=== PATIENT | male | born 1980 | race African-American/Black ===

== ENCOUNTER 2016-12-08 07:08 | Emergency (ER) | payer MEDICAID ==
[~2016-12-08] VITALS: Ht 177.8 cm; Wt 86.1 kg
[~2016-12-08 07:08] MED LIST: ACET-2723 PO; FAMO-137 PO; FAMO20TA8 PO
[2016-12-08 07:12] VITALS: Ht 177.8 cm; Wt 86.1 kg
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
[2016-12-08] MEDS ORDERED: NORMAL SALINE 1,000 ML IV ONE (07:18)
[2016-12-08] MEDS ORDERED: RISP2TAB (07:21)
--- OUTSIDE RECORDS SUMMARY | 2016-12-08 07:27 | XMS REPORT | Continuity of Care Document ---
Author Author [facility] Organization [facility] Address Unknown Phone Unavailable Support Name Relationship Address Phone LEANDROHOOD BOBBY Caregiver [address] [address] MERNA MURRY MD Caregiver [address] [address] Unavailable ANG GRAHAM Next Of Kin [address] [place] [address] CP Insurance Providers Payer Name Policy Number Subscriber Name Relationship Medicaid Out Of State [id number] Miladys Pascual 16 Self Problems Medical Problems [...] F (96.8 - 99.1) Temperature (Calculated Celsius) 36.47193 degrees C (36.0 - 37.3) Pulse Rate [...] specimen been collected/ obtained? Y Urine Specific [place] October 26, 2014 6:20pm 1.020 - Has [...] N 4.5-11.0 Name: MILADYS PASCUAL Unit #: [id number] : 1980 Sex: M Loc / Svc: ED DOS: Signed Report #: [id number] DIAGNOSTIC IMAGING REPORT TYPE OF EXAM: KUB [...] Encounters Encounter Location Date/Time Departed Emergency Room [facility] 10/26/14 4:33pm Recent Diagnosis
[2016-12-08] MEDS ORDERED: ONDANSETRON 4mg/2ml INJECTION IV ONE (07:30)
[2016-12-08] MEDS ORDERED: FAMOTIDINE 20 MG in FAMOTIDINE 20mg IVPB 50 ML IV ONE (07:30)
[2016-12-08] MEDS ORDERED: G.I. COCKTAIL 30ml PO ONE (07:30)
[2016-12-08 07:39] LABS: BASOPHILS % (AUTO) 0.1 % (0-2); HCT - HEMATOCRIT 53.2 % (41-53); HGB - HEMOGLOBIN 18.1 GM/DL (13.5-17.5); IMMATURE GRANULOCYTE # (AUTO) 0.03 T/MM3 (0.00-0.03); IMMATURE GRANULOCYTE % (AUTO) 0.3 % (0.0-0.5); LYMPHOCYTES # (AUTO) 2.2 T/MM3 (1-4.8); LYMPHOCYTES % (AUTO) 18.2 % (23-45); MEAN CORPUSCULAR HGB 29.9 UUG (26-34); MEAN CORPUSCULAR VOLUME 87.9 UM3 (80-100); MEAN PLATELET VOLUME 10.5 UM3 (9.4-12.4); MONOCYTES # (AUTO) 0.6 T/MM3 (0-0.8); MONOCYTES % (AUTO) 5.1 % (0-9.0); NEUTROPHILS #(AUTO)-ABSOLUTE 9.1 T/MM3 (1.8-7.7); NEUTROPHILS % (AUTO) 76.3 % (33-66); RED BLOOD COUNT 6.05 M/MM3 (4.50-5.90); WBC - WHITE BLOOD COUNT 11.9 T/MM3 (4.5-11.0)
--- NOTE | 2016-12-08 07:40 | NUR ---
TO XRY PER CART
[2016-12-08 07:45] LABS: ANION GAP 18 MEQ/L (5-15); BUN/CREATININE RATIO 17 RATIO (6-26); CALCIUM 10.5 MG/DL (8.4-10.2); CHLORIDE 92 MEQ/L (98-107); CO2 - CARBON DIOXIDE 34 MEQ/L (22-30); GLOMERULAR FILTRATION RATE 84; GLUCOSE 125 MG/DL (75-110); LIPASE 33 U/L (23-300); POTASSIUM 3.2 MEQ/L (3.6-5); SODIUM 144 MEQ/L (134-144)
--- NOTE | 2016-12-08 07:47 | ERPDOC ---
Departure Disposition Decision Date: December 08, 2016 Disposition Decision Time: 08:50 Disposition: 01 DISCHARGED HOME, SELF-CARE Impression Impression Impression: Primary Impression: Nausea & vomiting Vomiting type: unspecified Vomiting Intractability: non-intractable Qualified Codes: R11.2 - Nausea with vomiting, unspecified Additional Impression: Abdominal pain Abdominal location: epigastric Qualified Codes: R10.13 - Epigastric pain Severity: Severe Condition: Improved Seen By: Physician only Referrals: ERIK ROACH MD (PCP) 3 Days Patient Instructions: Abdominal Pain (ED), Gastroenteritis (ED) Problems/Meds/Labs Reviewed?: Yes Medications reviewed and manag: Yes Additional Instructions: You have stomach pain, which might be due to your acid reflux, or might be due to a stomach bug (gastroenteritis). Take the famotidine to help with stomach acid. The sucralfate will help to coat your stomach and take away the pain. Use the zofran for nausea. Eat whatever you can tolerate - starting with clear liquids and advancing your diet to the next complex food. Follow up care ordered?: Yes Mental Status: Alert, Oriented Scripts Ondansetron (Zofran Odt) 4 Mg Tab.rapdis 4 MG PO QID Y for NAUSEA &/OR VOMITING, #20 TAB 0 Refills Prov: DECEMBERHO DO 12/08/16 Sucralfate (Sucralfate) 1 Gm Tablet 1 TAB PO QID, #120 TAB 3 Refills Prov: DECEMBERHO DO 12/08/16 Famotidine (Famotidine) 20 Mg Tablet 1 TAB PO BID for 30 Days, #60 TAB Prov: DECEMBERHO DO 12/08/16 HPI - Abdominal Pain General Chief Complaint: Abdominal Pain Stated Complaint: VOMITING AND ABDOMINAL PAIN Time Seen by Provider: 07:18 Source: patient, EMS History/Exam Limitations: no limitations HPI - Abdominal Pain Initial Comments 36yo man presented to the ER by EMS for Abd pain/vomiting. Pt has a h/o GERD, usually kept in check by PO pepcid; pt has not need pepcid in appx 1 year. Three days ago, pt had nausea, vomiting, and intermittent abdominal pain, which became much worse after vomiting. Pt has not taken any medications to help his sx; he is having trouble keeping anything down. Today, sx have still not resolved; EMS found pts latest bilious vomit still in his toilet. Denies any URI /sinusitis sx. Pt is well-known to the local EMS. Has a h/o schizophrenia, relatively well- controlled. Has comorbid GERD and possible gastric ulcers. Occurred At: home Onset: Rapid, Constant Duration: other Pain Scale: Now & Worst: 6/10 Quality: sharpness, stabbing Location: epigastric Radiation: no radiation Activities at Onset: none Modifying Factors: IMPROVES WITH: lying down, rest, WORSE WITH: eating, movement, palpation, vomiting Associated Symptoms: nausea/vomiting Hx of Similar Symptoms: Yes Allergies: Coded Allergies: No Known Drug Allergies (Unverified Allergy, Unknown, 08/26/15) Past History Past Medical History Hx Echocardiogram: No GI: GERD, ulcers Psychological: schizophrenia Surgical History Denies Surgeries Vaccines Hx Influenza Vaccination: No Hx Pneumococcal Vaccination: No Social History Sexuality: female partner Review of Systems GI Upper Abdomen: heartburn/indigestion, nausea, pain, vomiting, DENIES: dysphagia , food intolerances, hematemesis Lower Abdomen: constipation, DENIES: blood in stool, eugene-colored stools, diarrhea, melena, pain, painful BM All other Systems All Other Systems: Reviewed and Negative Physical Exam General General Nourishment: well nourished, well developed, appears stated age, no acute distress, adult General Body Habitus: well groomed Vitals and Pain First Documented Vital Signs Date Time Temp Pulse Resp B/P Pulse Ox O2 Delivery O2 Flow Rate FiO2 12/08/16 07:12 99.0 76 16 117/79 97 Room Air Weight: Kilograms: Height (feet): 5 Height (inches): 10 Triage Pain Scale: RN VS reviewed by Provider: Yes Normal Exams: Head: Normocephalic w/o trauma Eyes: Pupils are PERRLA w/ EOMI, No scleral icterus, irritation ENMT: No facial trauma, nasal exudates, pharyngeal erythema Neck: Full range of motion, without adenopathy, JVD Lymphatic: No lymphadenopathy, or lymphedema noted Musculoskeletal: No tenderness, or deformity noted Integumentary: No rashes, hives, or bruising noted Neurologic: Patient is alert, and oriented Psychiatric: Patient exhibits, appropriate attention, emotion and affect Respiratory (brief) Respiratory: FOUND: clear all murray, equal bilaterally, symmetrical, NOT FOUND : rales, wheezes Cardiovascular (brief) Cardiac: FOUND: regular rate, regular rhythm, NOT FOUND: click, gallop, murmur , pedal edema, peripheral edema, rub Capillary Refill: <2 sec Pulses: all distal extremities, equal, strong Abdomen (brief) Abdominal Brief: FOUND: bowel normo active x4, soft, tender (TTP in epigastrum without peritoneal signs.), NOT FOUND: distended, hepatosplenomegaly, pulsatile mass Differential Diagnoses Considering: Biliary Colic, Cholecystitis, Constipation, Gastroenteritis, GERD , Pancreatitis, Pyelonephritis, Renal Colic, Ulcer, Ulcerative Colitis, UTI, Volvulus Progress Results/Orders Orders Procedure Category Date Status Time Iv Lock (Ed Only) EDM 12/08/16 Transmitted 07:18 Nothing By Mouth (Ed EDM 12/08/16 Transmitted Only) 07:18 Cbc W/Auto LAB 12/08/16 Complete Diff-Reflex Manual 07:18 Bmp - Basic Metabolic LAB 12/08/16 Complete Panel 07:18 Lipase LAB 12/08/16 Complete 07:18 Kub W/Upright RAD 12/08/16 Resulted 07:18 Normal Saline (Normal PHA 12/08/16 Complete Saline Iv) 07:18 Ondansetron Inj PHA 12/08/16 Complete (Zofran) 07:30 G.I. Cocktail PHA 12/08/16 Complete (/Maalox/Lidocaine 07:30 Famotidine (Pepcid 20 PHA 12/08/16 Complete Mg Inj.) 07:30 UA, LAB 12/08/16 Complete Dip&Micro(Complete) & 07:28 Lab Results Laboratory Tests Test 12/08/16 07:28 White Blood Count 11.9T/MM3 Red Blood Count 6.05M/MM3 Hemoglobin 18.1GM/DL Hematocrit 53.2% Mean Corpuscular Volume 87.9UM3 Mean Corpuscular Hemoglobin 29.9UUG Mean Corpuscular Hemoglobin Concent 34.0GM/DL RDW Standard Deviation 44.8FL Platelet Count 356T/MM3 Mean Platelet Volume 10.5UM3 Immature Granulocyte % (Auto) 0.3% Neutrophils (%) (Auto) 76.3% Lymphocytes (%) (Auto) 18.2% Monocytes (%) (Auto) 5.1% Eosinophils (%) (Auto) 0.0% Basophils (%) (Auto) 0.1% Absolute Immature Granulocyte (auto 0.03T/MM3 Absolute Neutrophils (auto) 9.1T/MM3 Absolute Lymphocytes (auto) 2.2T/MM3 Absolute Monocytes (auto) 0.6T/MM3 Absolute Eosinophils (auto) 0.0T/MM3 Absolute Basophils (auto) 0.0T/MM3 Urine Collection Type Cleancatch-midstream Urine Color Yellow Urine Turbidity Clear Urine pH 7.0 Urine Specific [place] 1.010 Urine Protein 1+ Urine Glucose (UA) Negative Urine Ketones 1+ Urine Blood Negative Urine Nitrite Negative Urine Bilirubin 1+ Urine Urobilinogen 1.0EU/DL Urine Leukocyte Esterase Negative Urine RBC None seen/HPF Urine WBC 0-1/HPF Urine Squamous Epithelial Cells None seen Urine Bacteria 3+ Urine Mucus Present Urine Culture Indicated Cult not indicated Turbidity < 20 Sodium Level 144MEQ/L Potassium Level 3.2MEQ/L Chloride Level 92MEQ/L Carbon Dioxide Level 34MEQ/L Anion Gap 18MEQ/L Blood Urea Nitrogen 17.0MG/DL Creatinine 1.0MG/DL Glomerular Filtration Rate Calc 84 BUN/Creatinine Ratio 17RATIO Glucose Level 125MG/DL Calculated Osmolality 280MOSM/KG Calcium Level 10.5MG/DL Icterus Index < 2 Lipase 33U/L Chemistry Specimen Hemolysis < 15 Medications Current ED Medications Sodium Chloride (Normal Saline IV) 1,000 ml @ 0 mls/hr Q0M ONCE IV ; Start 12/08 at 07:18; Stop 12/08/16 at 07:20; Status DC Ondansetron HCl (Zofran) 4 mg O ONCE IV Last administered on 12/08/16 07:35; Start 12/08/16 at 07:30; Stop 12/08/16 at 07:31; Status DC Pharmacy Profile Note 30 ml 30 ml O ONCE PO Last administered on 12/08/16 07: 35; Start 12/08/16 at 07:30; Stop 12/08/16 at 07:31; Status DC Famotidine/ Famotidine (PEPCID 20 mg INJ./PEPCID 20mg in NS 50ml) 52 ml @ 100 mls/hr O ONCE IV Last administered on 12/08/16 07:35; Start 12/08/16 at 07:30; Stop 12/08/16 at 08:01; Status DC Progress Progress Hx, PE, labs, and rads all point to either GE or gastritis. Discussed dx, prognosis, tx, and need for f/u with pt who voiced understanding. Will send pt with rx for pepcid, zofran, and instructions to f/u with PCM. Xray Xray : Xray: KUB Upright Interpretation: Normal, Interpreted by HO Vaughn DO December 08, 2016 07:47
--- NOTE | 2016-12-08 07:57 | NUR ---
RETURNED FROM XRY
--- NOTE | 2016-12-08 08:02 | NUR ---
INTAKE GIVEN 8 OZ 7UP TO DRINK.
--- NOTE | 2016-12-08 08:18 | DI ---
EXAM: KUB W/UPRIGHT DATE: 12/08/2016 7:18 AM ENCOUNTER: Initial INDICATION: ITS.REASON: Abd pain COMPARISON: 10/26/2014 Technique: Upright and supine AP abdominal radiographs were obtained. Findings: Non-obstructive bowel gas pattern. Mild to moderate colonic gas and stool. No intraperitoneal free air. Calcified pelvic phleboliths. No other suspicious calcifications appreciated. No acute osseous abnormality identified. The visualized lung bases appear clear. Impression: Mild to moderate colonic gas and stool with an otherwise nonobstructive bowel gas pattern. .
--- NOTE | 2016-12-08 08:20 | NUR ---
OUTPUT VOIDED 200 CC ADRY CLEAR URINE
--- NOTE | 2016-12-08 08:22 | NUR ---
NAUSEA IMPROVED. WAS ABLE TO DRINK ALL OF 7 UP
[2016-12-08 08:34] LABS: BLOOD, URINE NEGATIVE (NEGATIVE); COLOR,URINE YELLOW (YELLOW); LEUKOCYTE ESTERASE ,URINE NEGATIVE (NEGATIVE); NITRITE,URINE NEGATIVE (NEGATIVE)
--- NOTE | 2016-12-08 08:46 | NUR ---
DR MYERS IN
[2016-12-08 08:50] LABS: RBC,URINE NONE SEEN /HPF (0-3); WBC,URINE 0-1 /HPF (0-5)
[2016-12-08 08:51] LABS: BACTERIA,URINE 3+ (NEGATIVE); MUCUS,URINE PRESENT; SQUAMOUS EPITHELIAL CELL,UR NONE SEEN
[2016-12-08] MEDS ORDERED: SUCR1TAB PO (08:55)
[2016-12-08] MEDS ORDERED: FAMO20TA8 PO (08:55)
[2016-12-08] MEDS ORDERED: ONDA4TAB7 PO (08:55)
[2016-12-08 09:07] VITALS: BP 99/57; PULSE 66; RESP 16; TEMP 98.5; O2SAT 99
--- NOTE | 2016-12-08 09:07 | NUR ---
PHARMACY CALLED IN RX FOR PT TO [facility]. SUCRALFATE GM 1 TAB 1 PO QID DISPENSE 120 REFILL X3 FAMOTIDINE 20 MG TAB 1 PO BID DISPENSE 30 DAYS=60 TABS. NO REFILL ZOFRAN OD 4 MG RAPIDIS TAB 1 PO QID PRN NAUSEA & VOMITING DISPENSE 20 TABS NO REFILLS PER DR TEAGUE MAY
== END 2016-12-08 09:07 | disposition home or self-care (01) ==
LOC: ED 07:08
DX: R10.13 Epigastric pain (principal); R11.2 Nausea with vomiting, unspecified
CPT/HCPCS: 74020; 80048; 81001; 83690; 85025; 96361; 96365; 96375; 99284; J2405; J7999; S0028